=== PATIENT | male | born 1970 | race Caucasian/White ===

== ENCOUNTER → 2016-06-11 | Outpatient (CLI) | payer BC ==
--- NOTE | 2016-06-11 14:10 | CR ---
EXAMINATION: Right elbow HISTORY: Effusion COMPARISON: None TECHNIQUE: 3 views FINDINGS/IMPRESSION: There is no acute osseous abnormality, joint effusion, dislocation, or fracture identified. Bone mineralization and joint spaces appear normal. Mild soft tissue swelling is noted overlying the olecranon.
== END ==
LOC: MW.CHORTHO 10:25
PROVIDERS: ATTEND Orthopaedic Surgery
DX: M25.521 Pain in right elbow (principal); M25.421 Effusion, right elbow; M79.89 Other specified soft tissue disorders
CPT/HCPCS: 73080-26-RT; 73080-RT